=== PATIENT | female | born 1955 | race Caucasian/White ===

== ENCOUNTER 2017-03-26 11:13 | Emergency (ER) | payer OTHER ==
[~2017-03-26 11:13] MED LIST: 1-ME1LIQ PO; ALBU6.7H INH; ALPR0.25 PO; DICL75 PO; ECOT500T PO; LEVA750T9 PO; LEVO100T4 PO; LISI-587 PO; PRED20 PO; ZOCO80TA PO
[2017-03-26 11:25] VITALS: BP 158/82; PULSE 87; RESP 20; TEMP 98; O2SAT 97
[2017-03-26] MEDS ORDERED: ASPI325T PO (11:30)
[2017-03-26] MEDS ORDERED: DICL75TA PO (11:30)
[2017-03-26] MEDS ORDERED: SODIUM CHLOR 0.9% 1000 ML INJ 1,000 ML IV ONE (11:30)
[2017-03-26] MEDS ORDERED: LEVO-171 PO (11:30)
[2017-03-26] MEDS ORDERED: SODIUM CHLORIDE 0.9% FLUSH 10 ML FLUSH IVF PRN (11:30)
[2017-03-26] MEDS ORDERED: ONDANSETRON HCL 4 MG/2 ML VIAL IVP ONE (11:30)
[2017-03-26] MEDS ORDERED: MECLIZINE HCL 25 MG TAB PO ONE (11:30)
[2017-03-26] MEDS ORDERED: LISI-515 PO (11:30)
[2017-03-26] MEDS ORDERED: AMLO2.5T PO (11:30)
--- NOTE | 2017-03-26 11:39 | PD ---
HPI Chief Complaint: Dizziness Time Seen by Provider: 11:22 Travel History International Travel<30 days: No Contact w/Intl Traveler<30days: No Traveled to known affect area: No History of Present Illness HPI 62-year-old female arrives to the ER complaining of dizziness. It started yesterday in the afternoon and it has been constant since. She noted a few episodes of dizziness lasting just a few minutes in the days preceding yesterday. She vomited once in the ER here. She denies headache. She's had no tinnitus otalgia or otorrhea. No recent fever. No recent illness. She does report drinking at least 4 g of Tylenol daily due to her chronic right lower extremity pain as well as left hip pain. No other complaint is offered at the time of ER evaluation. No chest pain or shortness of breath. No fever. PFSH Past Medical History Arthritis: Yes High Cholesterol: Yes Diminished Hearing: No Hypertension: Yes Past Surgical History Abdominal Surgery: Yes (colostomy and a reversaL) Hysterectomy: Yes Other Surgery: Yes (HERNIA REPAIR) Social History Alcohol Use: Yes (wine daily) Tobacco Use: Yes (1PPD) Substance Use: No Allergies-Medications (Allergen,Severity, Reaction): Coded Allergies: Penicillin (Verified Allergy, Severe, HIVES, 03/26/17) RASH Reported Meds & Prescriptions Reported Meds & Active Scripts Active Meclizine (Meclizine HCl) 25 Mg Tab 25 Mg PO TID PRN Ativan (Lorazepam) 0.5 Mg Tab 0.5 Mg PO Q8H PRN Reported Aspirin 325 Mg Tab 325 Mg PO DAILY Amlodipine (Amlodipine Besylate) 2.5 Mg Tab 2.5 Mg PO DAILY Levothyroxine (Levothyroxine Sodium) 300 Mcg Tab 300 Mcg PO DAILY Diclofenac Sodium DR (Diclofenac Sodium) 75 Mg Tabdr 75 Mg PO DAILY Lisinopril 20 Mg Tab 20 Mg PO DAILY Review of Systems Except as stated in HPI: all other systems reviewed are Neg General / Constitutional: No: Fever Cardiovascular: No: Chest Pain or Discomfort Physical Exam Narrative GENERAL: 62-year-old female well-nourished developed green emesis bag with emesis SKIN: Warm and dry. HEAD: Atraumatic. Normocephalic. EYES: Pupils equal and round. No scleral icterus. No injection or drainage. Range of motion intact. There are appears to be minimal nystagmus with gaze deviation towards the left. ENT: No nasal bleeding or discharge. Mucous membranes pink and moist. NECK: Trachea midline. No JVD. CARDIOVASCULAR: Regular rate and rhythm. RESPIRATORY: No accessory muscle use. Clear to auscultation. Breath sounds equal bilaterally. GASTROINTESTINAL: Abdomen soft, non-tender, nondistended. Hepatic and splenic margins not palpable. MUSCULOSKELETAL: Extremities without clubbing, cyanosis, or edema. No obvious deformities. NEUROLOGICAL: Awake and alert. No obvious cranial nerve deficits. Motor grossly within normal limits. Five out of 5 muscle strength in the arms and legs. Normal speech. PSYCHIATRIC: Appropriate mood and affect; insight and judgment normal. Data Data Last Documented VS Vital Signs Date Time Temp Pulse Resp B/P Pulse Ox O2 Delivery O2 Flow Rate FiO2 03/26/17 15:39 75 20 133/72 96 03/26/17 12:59 Nasal Cannula 2 03/26/17 11:25 98.0 Vital signs reviewed Orders Electrocardiogram (03/26/17 11:30) Basic Metabolic Panel (Bmp) (03/26/17 11:30) Complete Blood Count With Diff (03/26/17 11:30) Urinalysis - C+S If Indicated (03/26/17 11:30) Ecg Monitoring (03/26/17 11:30) Iv Access Insert/Monitor (03/26/17 11:30) Oximetry (03/26/17 11:30) Meclizine (Antivert) (03/26/17 11:30) Ondansetron Inj (Zofran Inj) (03/26/17 11:30) Sodium Chloride 0.9% Flush (Ns Flush) (03/26/17 11:30) Sodium Chlor 0.9% 1000 Ml Inj (Ns 1000 M (03/26/17 11:30) Lorazepam Inj (Ativan Inj) (03/26/17 11:45) Chest, Single Ap (03/26/17 ) Mri Brain W&W/O Contrast (03/26/17 11:41) Mra Brain W/O Contrast (Cow) (03/26/17 ) Mra Carotids W Contrast (03/26/17 ) Gadodiamide Pf Inj (Omniscan Pf Inj) (03/26/17 14:45) Labs Laboratory Tests Test 03/26/17 11:15 White Blood Count 20.4 TH/MM3 Red Blood Count 4.43 MIL/MM3 Hemoglobin 14.9 GM/DL Hematocrit 44.5 % Mean Corpuscular Volume 100.4 FL Mean Corpuscular Hemoglobin 33.6 PG Mean Corpuscular Hemoglobin 33.5 % Concent Red Cell Distribution Width 13.5 % Platelet Count 349 TH/MM3 Mean Platelet Volume 8.0 FL Neutrophils (%) (Auto) 93.0 % Lymphocytes (%) (Auto) 3.1 % Monocytes (%) (Auto) 2.1 % Eosinophils (%) (Auto) 0.1 % Basophils (%) (Auto) 1.7 % Neutrophils # (Auto) 19.1 TH/MM3 Lymphocytes # (Auto) 0.6 TH/MM3 Monocytes # (Auto) 0.4 TH/MM3 Eosinophils # (Auto) 0.0 TH/MM3 Basophils # (Auto) 0.3 TH/MM3 CBC Comment DIFF FINAL Differential Comment Sodium Level 130 MEQ/L Potassium Level 3.6 MEQ/L Chloride Level 94 MEQ/L Carbon Dioxide Level 25.5 MEQ/L Anion Gap 11 MEQ/L Blood Urea Nitrogen 11 MG/DL Creatinine 0.64 MG/DL Estimat Glomerular Filtration 94 ML/MIN Rate Random Glucose 155 MG/DL Calcium Level 9.9 MG/DL [facility] Medical Decision Making Medical Screen Exam Complete: Yes Emergency Medical Condition: Yes Differential Diagnosis Central vertigo, peripheral vertigo, metabolic abnormality, renal failure, arrhythmia Narrative Course CBC & BMP Diagram 03/26/17 11:15 Neutrophils 93% Last 24 hours Impressions Brain MRI 03/26/17 1141 Signed Impressions: Service Date/Time: Sunday, March 26, 2017 13:49 - CONCLUSION: 1. Small focal areas of cortical encephalomalacia along the left cerebral convexity compatible with old strokes 2. No evidence of acute infarct, hemorrhage, mass or edema. 3. Left internal carotid artery occlusion identified on MRA.. Lexx Bangura MD Neck Magnetic Resonance Angiography 03/26/17 0000 Signed Impressions: Service Date/Time: Sunday, March 26, 2017 13:49 - CONCLUSION: 1. Long segmental occlusion of the left internal carotid artery. 2. Reconstitution of the left supraclinoid internal carotid artery and left MCA flow. 3. No other significant extracranial carotid or vertebral abnormality. Lexx Bangura MD Head Magnetic Resonance Angiography 03/26/17 0000 Signed Impressions: Service Date/Time: Sunday, March 26, 2017 13:30 - CONCLUSION: 1. Occluded left internal carotid artery siphon as described. 2. Significantly decreased flow in the left cerebral circulation. 3. Well-maintained right MCA and bilateral MORELIA circulation. 4. Normal vertebral basilar circulation. Lexx Bangura MD Chest X-Ray 03/26/17 0000 Signed Impressions: Service Date/Time: Sunday, March 26, 2017 14:26 - CONCLUSION: No acute disease. Wilfredo Bartlett MD The patient is resting comfortably and feels better, is alert and in no distress. The patients results and examination findings were discussed. The repeat examination is unremarkable and benign. The history, exam, diagnostic testing, and current condition do not suggest any significant pathology to warrant further testing, continued ED treatment, admission, or surgical evaluation at this point. The vital signs have been stable. The patient does not have uncontrollable pain, intractable vomiting, or other significant symptoms. The patient's condition is stable and appropriate for discharge. The patient will pursue further outpatient evaluation with a primary care physician or other designated or consulting physician as indicated in the discharge instructions. The patient expressed understanding and was agreeable with this plan. Diagnosis Primary Impression: Vertigo Additional Impression: Internal carotid artery occlusion Qualified Code: I65.22 - Occlusion of left internal carotid artery Referrals: Ward Dean MD 3 days Additional Instructions: You have a choice when it comes to health care, and we are glad that you chose [facility]. Hopefully, we have met your expectations on today's visit. You are welcome to return to [facility] at any time, as we are committed to meeting the health care needs of our community. Med/Other Pt SpecificInfo: Prescription(s) given Scripts Meclizine 25 Mg Tab25 Mg PO TID PRN (VERTIGO) #30 TAB Ref 0 Prov:Huber Meza MD 03/26/17 Lorazepam (Ativan)0.5 Mg Tab0.5 Mg PO Q8H PRN (DIZZINESS) #10 TAB Ref 0 Prov:Huber Meza MD 03/26/17 Disposition: DISCHARGE HOME Condition: Stable Huber Meza MD Mar 26, 2017 11:39
[2017-03-26] MEDS ORDERED: MECL-62 PO (11:40)
[2017-03-26] MEDS ORDERED: LORA-392 PO (11:40)
[2017-03-26] MEDS ORDERED: LORazepam 2 MG/ML VIAL IV PUSH ONE (11:45)
[2017-03-26 11:47] VITALS: O2SAT 96
[2017-03-26 11:49] LABS: AUTOMATED NEUTROPHIL # 19.1 TH/MM3 (1.8-7.7); BASOPHIL # 0.3 TH/MM3 (0-0.2); BASOPHIL % 1.7 % (0.0-2.0); EOSINOPHIL % 0.1 % (0.0-4.0); HEMATOCRIT 44.5 % (35.0-46.0); LYMPH % 3.1 % (9.0-44.0); LYMPHOCYTE # 0.6 TH/MM3 (1.0-4.8); MEAN CELL VOLUME 100.4 FL (80.0-100.0); MEAN CORPUSCULAR HEMOGLOBIN 33.6 PG (27.0-34.0); MEAN CORPUSCULAR HGB CONC 33.5 % (32.0-36.0); MONO % 2.1 % (0.0-8.0); PLATELET COUNT 349 TH/MM3 (150-450); RED BLOOD COUNT 4.43 MIL/MM3 (4.00-5.30); RED CELL DISTRIBUTION WIDTH 13.5 % (11.6-17.2); WHITE BLOOD COUNT 20.4 TH/MM3 (4.0-11.0)
[2017-03-26 11:51] LABS: HEMO FLAGS DIFF FINAL
[2017-03-26 11:55] VITALS: BP 141/77; PULSE 78; RESP 20; O2SAT 95
[2017-03-26 11:56] LABS: POTASSIUM 3.6 MEQ/L (3.5-5.1)
[2017-03-26 12:00] LABS: BICARBONATE 25.5 MEQ/L (21.0-32.0)
[2017-03-26 12:59] VITALS: BP 135/75; PULSE 70; RESP 20; O2SAT 95
[2017-03-26] MEDS ORDERED: GADODIAMIDE PF 287 MG/ML 20 ML VIAL (for RAD MRI) IV ONE (14:45)
[2017-03-26 14:47] VITALS: BP 124/83; PULSE 87; RESP 20; O2SAT 95
--- NOTE | 2017-03-26 14:51 | RADRPT ---
EXAM DATE/TIME: 03/26/2017 14:26 [facility] COMPARISON: No previous studies available for comparison. INDICATIONS : Dizziness, nausea, shortness of breath. MEDICAL HISTORY : None. SURGICAL HISTORY : None. ENCOUNTER: Initial ACUITY: 2 days PAIN SCORE: 0/10 LOCATION: Bilateral chest FINDINGS: A single view of the chest demonstrates the lungs to be symmetrically aerated without evidence of mas s, infiltrate or effusion. The cardiomediastinal contours are unremarkable. Osseous structures are intact. CONCLUSION: No acute disease. Wilfredo Bartlett MD on March 26, 2017 at 14:46 Board Certified Radiologist. This report was verified electronically.
--- NOTE | 2017-03-26 15:22 | RADRPT ---
EXAM DATE/TIME: 03/26/2017 13:30 [facility] COMPARISON: MRA CAROTIDS W CONTRAST, March 26, 2017, 13:49. MRI BRAIN W & W/O CONTRAST, March 26, 2017, 13:49 . INDICATIONS : Dizziness. MEDICAL HISTORY : Hypertension. Cervical cancer SURGICAL HISTORY : Hysterectomy. Umbilical hernia repair. Colon resection. ENCOUNTER: Initial ACUITY: 1 day PAIN SCORE: 0/10 LOCATION: cranial Please note a normal MRA of the brain does not entirely exclude the possibility of a small aneurysm, nor the possibility of distal intracranial vessel disease. TECHNIQUE: 3D time of flight MRA was performed. Source images, multiplanar STS MIP, and 3D volume MIP reconstru ctions were reviewed. FINDINGS: There is excellent visualization of the major intracranial arteries out to the second-order branch ve ssels. The distal cervical, petrous and cavernous segments of the left internal carotid artery are occluded. There is reconstitution of the supraclinoid left internal carotid artery however significant decreas e in flow related enhancement is identified especially in the left middle cervical artery distributio n. The right cerebral circulation including anterior sternal arteries and right middle cerebral artery i s well-maintained. Vertebral basilar vessels are patent without significant altered flow. The left vertebral artery is d ominant. There is no evidence of focal aneurysm. CONCLUSION: 1. Occluded left internal carotid artery siphon as described. 2. Significantly decreased flow in the left cerebral circulation. 3. Well-maintained right MCA and bilateral MORELIA circulation. 4. Normal vertebral basilar circulation. Lexx Bangura MD on March 26, 2017 at 15:15 Board Certified Radiologist. This report was verified electronically.
--- NOTE | 2017-03-26 15:25 | RADRPT ---
EXAM DATE/TIME: 03/26/2017 13:49 [facility] COMPARISON: MRA CAROTIDS W CONTRAST, March 26, 2017, 13:49. INDICATIONS : Dizziness. CONTRAST: 20 cc Omniscan (gadodiamide) IV MEDICAL HISTORY : Hypertension. Cervical cancer. SURGICAL HISTORY : Hysterectomy. Colon resection. Tonsillectomy. ENCOUNTER: Initial ACUITY: 1 day PAIN SCORE: 0/10 LOCATION: cranial TECHNIQUE: Multiplanar, multisequence MRI of the brain was performed both prior to and following the administrat ion of paramagnetic contrast. FINDINGS: CEREBRUM: Cortical and subcortical T2 hyperintensities are identified along the left cerebral convexity and lef t parietal lobe. There is no evidence of restricted diffusion. The right cerebral hemisphere is unrem arkable. CSF spaces are normal in appearance. WHITE MATTER: No other significant signal abnormalities are seen in the white matter. POSTERIOR FOSSA: The cerebellum and brainstem are intact. The 4th ventricle is midline. The cerebellopontine angle is unremarkable. The cerebellar tonsils are normal in position. DIFFUSION IMAGING: No focal areas of restricted diffusion are seen. No evidence of acute infarction. EXTRACRANIAL: The visualized portions of the orbits and paranasal sinuses are unremarkable. POST-CONTRAST: No abnormal areas of parenchymal or dural enhancement. No evidence of blood-brain barrier breakdown. CONCLUSION: 1. Small focal areas of cortical encephalomalacia along the left cerebral convexity compatible with o ld strokes 2. No evidence of acute infarct, hemorrhage, mass or edema. 3. Left internal carotid artery occlusion identified on MRA.. Lexx Bangura MD on March 26, 2017 at 15:20 Board Certified Radiologist. This report was verified electronically.
--- NOTE | 2017-03-26 15:27 | RADRPT ---
EXAM DATE/TIME: 03/26/2017 13:49 [facility] COMPARISON: No previous studies available for comparison. INDICATIONS : Dizziness. CONTRAST: 20 cc Omniscan (gadodiamide) IV MEDICAL HISTORY : Hypertension. Cervical cancer SURGICAL HISTORY : Colon resection. Tonsillectomy. Hysterectomy. ENCOUNTER: Initial ACUITY: 1 day PAIN SCORE: 0/10 LOCATION: neck Percent stenosis is calculated using the diameter of the stenotic region over the diameter of the nor mal distal internal carotid artery. TECHNIQUE: Bolus infused MRA of the extracranial circulation was performed using a neurovascular coil. Post pro cessing was performed including rotating subvolume maximum intensity projections of each carotid francisco javier ry, rotating full volume maximum intensity projections of both carotid arteries, sagittal and coronal sliding thin slab reformations of each carotid artery, and left oblique sliding thin slab reformatio n through the aortic arch to include the origin of the arch branch vessels. FINDINGS: AORTIC ARCH: There is a three vessel origin of the great vessels from the aorta. No evidence of ostial narrowing. RIGHT CAROTID: The common carotid artery is intact. The carotid bulb has a normal configuration without ulceration or narrowing. The internal carotid artery lumen is smooth without stenosis. The external carotid ar fabiola is intact.LEFT CAROTID: The common carotid artery is intact. Long segmental occlusion is identified of the left internal ventura tid artery beginning at its origin and extending to the cavernous segment. There is reconstitution of the supraclinoid segment. The external carotid artery is intact. VERTEBRALS: The vertebral arteries are asymmetric in diameter with the left being dominant.. No stenotic lesions are seen. CONCLUSION: 1. Long segmental occlusion of the left internal carotid artery. 2. Reconstitution of the left supraclinoid internal carotid artery and left MCA flow. 3. No other significant extracranial carotid or vertebral abnormality. Lexx Bangura MD on March 26, 2017 at 15:24 Board Certified Radiologist. This report was verified electronically.
[2017-03-26 15:39] VITALS: BP 133/72; PULSE 75; RESP 20; O2SAT 96
--- NOTE | 2017-03-27 17:23 | EKG ---
Date Performed: 03/26/2017 Time Performed: 11:43:39 PTAGE: 62 years EKG: Sinus rhythm NONSPECIFIC T-WAVE ABNORMALITY BORDERLINE ECG Compared to prior tracing no significant change PREVIOUS TRACING : 07/24/2014 13.08 DOCTOR: Alex Rojas Interpretating Date/Time 03/27/2017 17:20:06
== END 2017-03-26 16:48 | disposition home or self-care (01) ==
LOC: PHED 11:13
DX: I65.22 Occlusion and stenosis of left carotid artery (principal); I10 Essential (primary) hypertension; F17.200 Nicotine dependence, unspecified, uncomplicated
CPT/HCPCS: 70544; 70548; 70553; 71010; 80048; 85025; 93005; 96361; 96374; 96375; 99285; A9579; J2060; J2405; J7030